=== PATIENT | female | born 1985 | race Caucasian/White ===

== ENCOUNTER 2021-05-15 17:04 | Emergency (ER) | payer OTHER ==
[~2021-05-15 17:04] MED LIST: ZANAFLEX4 M1 PO
== END 2021-05-15 18:05 ==
LOC: ER1 17:04
DX: S61.511A Laceration without foreign body of right wrist, initial encounter (principal); S61.512A Laceration without foreign body of left wrist, initial encounter; F17.210 Nicotine dependence, cigarettes, uncomplicated; J45.909 Unspecified asthma, uncomplicated; X78.8XXA Intentional self-harm by other sharp object, initial encounter
CPT/HCPCS: 99284

== ENCOUNTER 2021-09-18 13:30 | Emergency (ER) | payer OTHER | END 2021-09-18 15:52 | disposition home or self-care (01) | LOC: ER1 13:30 | DX: S93.601A Unspecified sprain of right foot, initial encounter (principal); S80.812A Abrasion, left lower leg, initial encounter; W19.XXXA Unspecified fall, initial encounter; Y92.009 Unspecified place in unspecified non-institutional (private) residence as the place of occurrence of the external cause | CPT/HCPCS: 73610; 73630; 99283 ==

== ENCOUNTER 2022-02-27 11:30 | Emergency (ER) | payer SELFPAY ==
[2022-02-27 13:47] LABS: HEMOGLOBIN 14.2 gm/dl (12.3-15.3); RED BLOOD COUNT 4.69 M/UL (4.00-5.10); WHITE BLOOD COUNT 5.2 K/UL (4.5-11.0)
[2022-02-27 14:15] LABS: BUN/CREATININE RATIO 10 (0-10)
[2022-02-27] MEDS ORDERED: CYCLOBENZAPRINE10 MG PO ×2 (14:39→14:48)
[2022-02-27] MEDS ORDERED: IBUPROFEN600 MG PO (14:39)
== END 2022-02-27 15:05 | disposition home or self-care (01) ==
LOC: ER1 11:30
PROVIDERS: Physician Assistant
DX: M43.6 Torticollis (principal); M62.838 Other muscle spasm; J45.909 Unspecified asthma, uncomplicated; Z88.1 Allergy status to other antibiotic agents; Z88.5 Allergy status to narcotic agent; F17.210 Nicotine dependence, cigarettes, uncomplicated
CPT/HCPCS: 80053; 85025; 85652; 86140; 96374; 99284; J1885

== ENCOUNTER → 2022-03-23 | Outpatient (CLI) | payer SELFPAY ==
[~2022-03-23] MED LIST changes: +CYCLOBENZAPRINE10 MG PO; +IBUPROFEN600 MG PO
== END ==
LOC: EXRD 14:18
DX: M54.2 Cervicalgia (principal); G89.29 Other chronic pain
CPT/HCPCS: 72040